=== PATIENT | male | born 1975 | race Hispanic/Latino ===

== ENCOUNTER 2017-09-08 20:40 | Emergency (ER) | payer SELFPAY | END 2017-09-08 21:13 | disposition home or self-care (01) | LOC: EDH 20:40 | DX: K40.90 Unilateral inguinal hernia, without obstruction or gangrene, not specified as recurrent (principal); I10 Essential (primary) hypertension; Z90.49 Acquired absence of other specified parts of digestive tract | CPT/HCPCS: 99281 ==

== ENCOUNTER 2017-10-02 07:52 | Emergency (ER) | payer SELFPAY | END 2017-10-02 08:22 | disposition home or self-care (01) | LOC: EDH 07:52 | DX: S00.411A Abrasion of right ear, initial encounter (principal); I10 Essential (primary) hypertension; X58.XXXA Exposure to other specified factors, initial encounter; Y93.89 Activity, other specified; Y92.89 Other specified places as the place of occurrence of the external cause; Y99.8 Other external cause status | CPT/HCPCS: 99281 ==

== ENCOUNTER 2017-12-18 08:45 | Emergency (ER) | payer OTHER | END 2017-12-18 09:33 | disposition home or self-care (01) | LOC: EDH 08:45 | DX: I10 Essential (primary) hypertension (principal); Z90.49 Acquired absence of other specified parts of digestive tract; Z53.21 Procedure and treatment not carried out due to patient leaving prior to being seen by health care provider | CPT/HCPCS: 99281 ==

== ENCOUNTER 2018-08-13 07:07 | Emergency (ER) | payer SELFPAY | END 2018-08-13 08:54 | disposition home or self-care (01) | LOC: EDH 07:07 | DX: J06.9 Acute upper respiratory infection, unspecified (principal); I10 Essential (primary) hypertension; Z90.49 Acquired absence of other specified parts of digestive tract | CPT/HCPCS: 87804 ==

== ENCOUNTER 2018-08-19 06:10 | Emergency (ER) | payer SELFPAY ==
[2018-08-19 07:08] LABS: RAPID GROUP A STREP NEGATIVE (NEGATIVE)
[2018-08-19] MEDS ORDERED: IBUPROFEN 400 MG TABLET ONE (07:39)
[2018-08-19] MEDS ORDERED: GUAIFENESIN-DM 200/20 MG 10 ML ONE (07:40)
== END 2018-08-19 07:57 | disposition home or self-care (01) ==
LOC: EDH 06:10
DX: J06.9 Acute upper respiratory infection, unspecified (principal); I10 Essential (primary) hypertension; Z90.49 Acquired absence of other specified parts of digestive tract
CPT/HCPCS: 87804; 87880

== ENCOUNTER 2018-12-19 11:46 | Emergency (ER) | payer OTHER | END 2018-12-19 13:15 | disposition home or self-care (01) | LOC: EDH 11:46 | DX: I10 Essential (primary) hypertension (principal) | CPT/HCPCS: 93005 ==

== ENCOUNTER 2019-01-23 12:37 | Emergency (ER) | payer OTHER ==
[2019-01-23] MEDS ORDERED: SODIUM CHLORIDE 0.9% 1000ML 1,000 ML IV ONE (13:03)
[2019-01-23 13:14] LABS: BASOPHILS % (AUTO) 1.4 % (0.0-5.0); EOSINOPHILS % (AUTO) 2.8 % (0.0-8.0); HEMATOCRIT 47.1 % (42-54); LYMPHOCYTES % (AUTO) 32.6 % (21.0-51.0); MEAN CORPUSCULAR HEMOGLOBIN 29.1 pg (27.0-33.0); MEAN CORPUSCULAR HGB CONC 33.4 g/dL (32.0-36.0); MEAN CORPUSCULAR VOLUME 87.1 fL (79-99); NEUTROPHILS % (AUTO) 57.2 % (40.0-77.0); NUCLEATED RED BLOOD CELLS 0.1 % (0.0-0.19); PLATELET COUNT (AUTO) 305 K/uL (130-400); RED BLOOD CELL COUNT(AUTO) 5.41 MIL/uL (4.50-6.20); RED CELL DISTRIBUTION WIDTH 13.7 % (11.0-15.5); WHITE BLOOD COUNT (AUTO) 8.8 K/uL (4.8-10.8)
[2019-01-23 13:20] LABS: POTASSIUM 3.8 mmol/L (3.5-5.1)
[2019-01-23 13:26] LABS: ALBUMIN 4.1 g/dL (3.5-5.0); BILIRUBIN,TOTAL 0.5 mg/dL (0.2-1.0); INR 0.94 (0.85-1.15); PARTIAL THROMBOPLASTIN TIME 28.7 SEC (26.3-35.5); PROTHROMBIN TIME 9.9 SEC (9.6-11.6); TOTAL PROTEIN, SERUM 7.8 g/dL (6.0-8.3)
[2019-01-23 13:48] LABS: APPEARANCE,URINE Clear (CLEAR); BILIRUBIN,URINE Negative (NEGATIVE); COLOR,URINE Yellow (YELLOW); GLUCOSE, URINE (UA) >=1000 mg/dL (NEGATIVE); KETONES,URINE Trace mg/dL (NEGATIVE); LEUKOCYTE ESTERASE ,URINE Negative (NEGATIVE); NITRATE,URINE Negative (NEGATIVE); OCCULT BLOOD,URINE Negative (NEGATIVE); PROTEIN,URINE Negative (NEGATIVE); UROBILINOGEN,URINE 0.2 mg/dL (0.2-1.0)
[2019-01-23 13:56] LABS: AMPHET/METH SCREEN,URINE NEGATIVE (NEGATIVE); BARBITURATE SCREEN, URINE NEGATIVE (NEGATIVE); BENZODIAZEPINES SCREEN,URINE NEGATIVE (NEGATIVE); CANNABINOID SCREEN,URINE NEGATIVE (NEGATIVE); COCAINE SCREEN,URINE NEGATIVE (NEGATIVE); OPIATE SCREEN,URINE NEGATIVE (NEGATIVE); PHENCYCLIDINE SCREEN,URINE NEGATIVE (NEGATIVE)
[2019-01-23 14:04] LABS: BACTERIA,URINE None Seen /HPF (None Seen); RBC,URINE 0-1 /HPF (0-1); SQUAMOUS EPITHELIAL CELL,UR 0-2 /HPF (0-2); WBC,URINE None Seen /HPF (0-1)
== END 2019-01-23 14:57 | disposition home or self-care (01) ==
LOC: EDH 12:37
DX: F41.1 Generalized anxiety disorder (principal); E11.9 Type 2 diabetes mellitus without complications; R00.2 Palpitations; I10 Essential (primary) hypertension
CPT/HCPCS: 36415; 71045; 80053; 80305; 81001; 82550; 84484; 85025; 85610; 85730; 93005; 99285; J7030

== ENCOUNTER 2019-02-01 09:41 | Emergency (ER) | payer OTHER | END 2019-02-01 10:10 | disposition home or self-care (01) | LOC: EDH 09:41 | DX: R73.9 Hyperglycemia, unspecified (principal); I10 Essential (primary) hypertension; Z79.899 Other long term (current) drug therapy | CPT/HCPCS: 99281 ==

== ENCOUNTER 2019-02-09 08:48 | Emergency (ER) | payer OTHER | END 2019-02-09 10:03 | disposition home or self-care (01) | LOC: EDH 08:48 | DX: I10 Essential (primary) hypertension (principal) ==

== ENCOUNTER 2019-06-10 09:10 | Emergency (ER) | payer SELFPAY | END 2019-06-10 10:18 | disposition home or self-care (01) | LOC: EDH 09:10 | DX: I10 Essential (primary) hypertension (principal); K29.00 Acute gastritis without bleeding; Z91.19 Patient's noncompliance with other medical treatment and regimen ==

== ENCOUNTER 2019-07-15 08:23 | Emergency (ER) | payer OTHER | END 2019-07-15 09:20 | disposition home or self-care (01) | LOC: EDH 08:23 | DX: I10 Essential (primary) hypertension (principal); Z90.49 Acquired absence of other specified parts of digestive tract | CPT/HCPCS: 99281 ==

== ENCOUNTER 2019-07-17 08:16 | Emergency (ER) | payer OTHER | END 2019-07-17 09:14 | disposition home or self-care (01) | LOC: EDH 08:16 | DX: H10.9 Unspecified conjunctivitis (principal); I10 Essential (primary) hypertension; Z90.49 Acquired absence of other specified parts of digestive tract | CPT/HCPCS: 99281 ==

== ENCOUNTER 2020-05-13 19:19 | Emergency (ER) | payer OTHER ==
[2020-05-13] MEDS ORDERED: ORPHENADRINE CITRATE 30 MG/ML ML ONE (19:38)
[2020-05-13] MEDS ORDERED: LIDOCAINE 5% TOPICAL PATCH TP ONE (19:39)
[2020-05-13] MEDS ORDERED: KETOROLAC TROMETHAMINE 60 MG/2 ML VIAL ONE (19:39)
[2020-05-13] MEDS ORDERED: HYDROCODONE/ACETAMINOPHEN 5/325 MG TAB ONE (19:49)
== END 2020-05-13 20:04 | disposition home or self-care (01) ==
LOC: EDH 19:19
DX: M62.830 Muscle spasm of back (principal); I10 Essential (primary) hypertension; Z90.49 Acquired absence of other specified parts of digestive tract
CPT/HCPCS: 96372 ×2; 99284; J1885; J2360

== ENCOUNTER 2020-05-14 08:46 | Emergency (ER) | payer OTHER ==
[2020-05-14] MEDS ORDERED: LIDOCAINE 5% TOPICAL PATCH TP ONE (09:15)
[2020-05-14] MEDS ORDERED: ORPHENADRINE CITRATE 30 MG/ML ML ONE (09:15)
== END 2020-05-14 09:41 | disposition home or self-care (01) ==
LOC: EDH 08:46
DX: M62.830 Muscle spasm of back (principal); I10 Essential (primary) hypertension; Z90.49 Acquired absence of other specified parts of digestive tract
CPT/HCPCS: 96372; 99283; J2360